=== PATIENT | female | born 1985 | race African-American/Black ===

== ENCOUNTER 2019-10-31 12:04 | Outpatient (CLI) | payer OTHER, SELFPAY ==
--- NOTE | ~2019-10-31 | XR_ITS ---
EXAMINATION: XR chest 2V EXAM DATE: 10/31/2019 12:24 INDICATION: Short of breath and cough for 2 weeks. TECHNIQUE: Frontal and lateral projections of the chest obtained and reviewed. There is no prior james dy for comparison. FINDINGS: The lungs are clear. There are no pleural effusions. The cardiomediastinal silhouette is within normal limits. There is no pneumothorax suspected. The bones and soft tissues are unremarkab le. IMPRESSION: Unremarkable chest x-ray exam. Reviewed, dictated and finalized at location B. [facility] [employer]
== END 2019-10-31 12:05 | disposition home or self-care (01) ==
LOC: ANHIMG 12:11
PROVIDERS: PCP Emergency Medicine; Visit Provider Emergency Medicine
DX: Z72.0 Tobacco use (principal)
CPT/HCPCS: 71046

== ENCOUNTER 2020-03-13 10:29 | Outpatient (CLI) | payer OTHER, SELFPAY ==
--- NOTE | ~2020-03-13 | XR_ITS ---
EXAMINATION: XR cervical spine 4-5V DATE: 03/13/2020 11:01 INDICATION: Back pain. Injury. TECHNIQUE: 5 views of cervical spine were obtained. COMPARISON: None. FINDINGS: There is 11 degrees levoscoliosis of cervicothoracic spine. Vertebral body heights and inte rvertebral disc heights are normal. The uncovertebral joints and facet joints are normal. No central canal stenosis or prevertebral soft tissue swelling. IMPRESSION: 1. Cervicothoracic levoscoliosis. Reviewed, dictated and finalized at location A.
--- NOTE | ~2020-03-13 | XR_ITS ---
LUMBAR SPINE INDICATION: Back pain after injury TECHNIQUE: 3 views lumbar spine COMPARISON: None FINDINGS: No fracture, subluxation or dislocation. No evidence for spondylolysis or spondylolisthesi s. Vertebral bodies and disk spaces are preserved. IMPRESSION: 1: No acute abnormality of the lumbar spine identified. Reviewed, dictated and finalized at location A.
== END 2020-03-13 10:30 | disposition home or self-care (01) ==
PROVIDERS: PCP Emergency Medicine; Visit Provider Emergency Medicine
DX: M54.5 Low back pain (principal)
CPT/HCPCS: 72050; 72100

== ENCOUNTER 2020-07-10 09:26 | Outpatient (CLI) | payer OTHER, SELFPAY ==
--- NOTE | ~2020-07-10 | XR_ITS ---
XR foot RT min 3V DATE: 07/10/2020 10:00 INDICATION: Right fifth metatarsal TECHNIQUE: 4 views COMPARISON: None FINDINGS: No fracture or dislocation, periosteal reaction or bone destruction. Joint spaces are prese rved. No erosive changes. IMPRESSION: Negative Reviewed, dictated and finalized at location A. IMPRESSION: Negative
== END 2020-07-10 09:27 | disposition home or self-care (01) ==
LOC: ANHIMG 09:39
PROVIDERS: PCP Emergency Medicine; Visit Provider Emergency Medicine
DX: M79.671 Pain in right foot (principal)
CPT/HCPCS: 73630

== ENCOUNTER 2020-07-22 08:58 | Outpatient (CLI) | payer OTHER, SELFPAY ==
--- NOTE | 2020-07-22 11:00 | NEURO_ITS ---
Patient Number: [id number] Impression: # Complains of numbness of hands. # Right sensory Carpal Tunnel Syndrome. # No ulnar neuropathy. # Normal needle/EMG exam. # Clinical correlation recommended. Nerve Conduction Studies Anti Sensory Summary Table Stim Site NR Peak (ms) P-T Amp (?V) Site1 Site2 Delta-P (ms) Dist (cm) Lonnie (m/s) Left Median Anti Sensory (2-3nd Digit) Wrist 2.8 72.0 Wrist 2-3nd Digit 2.8 14.0 50 Wrist 2.9 65.3 Wrist 2-3nd Digit 2.8 14.0 50 Right Median Anti Sensory (2-3nd Digit) Wrist 4.0 27.0 Wrist 2-3nd Digit 4.0 14.0 35 Wrist 4.1 29.8 Wrist 2-3nd Digit 4.0 14.0 35 Left Radial Anti Sensory (Base 1st Digit) Wrist 2.0 33.1 Wrist Base 1st Digit 2.0 0.0 Right Radial Anti Sensory (Base 1st Digit) Wrist 2.5 15.5 Wrist Base 1st Digit 2.5 0.0 Left Ulnar Anti Sensory (5th Digit) Wrist 2.5 53.2 Wrist 5th Digit 2.5 14.0 56 Right Ulnar Anti Sensory (5th Digit) Wrist 2.5 52.2 Wrist 5th Digit 2.5 14.0 56 Motor Summary Table Stim Site NR Onset (ms) O-P Amp (mV) Site1 Site2 Delta-0 (ms) Dist (cm) Lonnie (m/s) Left Median Motor (Abd Poll Brev) Wrist 2.8 2.2 Elbow Wrist 4.5 27.0 60 Elbow 7.3 6.0 Right Median Motor (Abd Poll Brev) Wrist 3.0 8.3 Elbow Wrist 4.5 27.0 60 Elbow 7.5 7.6 Left Ulnar Motor (Abd Dig Minimi) Wrist 2.1 7.9 A Elbow Wrist 4.7 28.0 60 A Elbow 6.8 7.2 Right Ulnar Motor (Abd Dig Minimi) Wrist 2.3 6.1 A Elbow Wrist 4.6 29.0 63 A Elbow 6.9 5.1 F Wave Studies NR F-Lat (ms) L-R F-Lat (ms) Left Median (Mrkrs) (Abd Poll Brev) 24.37 1.04 Right Median (Mrkrs) (Abd Poll Brev) 25.40 1.04 Left Ulnar (Mrkrs) (Abd Dig Min) 24.08 0.29 Right Ulnar (Mrkrs) (Abd Dig Min) 24.38 0.29 EMG Side Muscle Nerve Root Ins Act Fibs Amp Dur Recrt Comment Right 1stDorInt Ulnar C8-T1 Nml Nml Nml Nml Nml Right Ext Indicis Radial (Post Int) C7-8 Nml Nml Nml Nml Nml Right Ext Digitorum Radial (Post Int) C7-8 Nml Nml Nml Nml Nml Right BrachioRad Radial C5-6 Nml Nml Nml Nml Nml Right PronatorTeres Median C6-7 Nml Nml Nml Nml Nml Right Abd Poll Brev Median C8-T1 Nml Nml Nml Nml Nml Left 1stDorInt Ulnar C8-T1 Nml Nml Nml Nml Nml Left Ext Indicis Radial (Post Int) C7-8 Nml Nml Nml Nml Nml Left Ext Digitorum Radial (Post Int) C7-8 Nml Nml Nml Nml Nml Left BrachioRad Radial C5-6 Nml Nml Nml Nml Nml Left PronatorTeres Median C6-7 Nml Nml Nml Nml Nml Left Abd Poll Brev Median C8-T1 Nml Nml Nml Nml Nml MTDD
== END 2020-07-22 08:59 | disposition home or self-care (01) ==
PROVIDERS: PCP Emergency Medicine; Visit Provider Psychiatry & Neurology Neurology
DX: R20.2 Paresthesia of skin (principal); G56.01 Carpal tunnel syndrome, right upper limb
CPT/HCPCS: 95886; 95911

== ENCOUNTER → 2020-12-27 01:33 | Outpatient (CLI) | payer OTHER, SELFPAY ==
[2020-12-27 20:22] LABS: SARS-CoV-2 RNA PCR Negative
== END ==
PROVIDERS: PCP Emergency Medicine; Visit Provider Obstetrics & Gynecology
DX: Z01.812 Encounter for preprocedural laboratory examination (principal); Z20.822 Contact with and (suspected) exposure to COVID-19
CPT/HCPCS: C9803; U0003; U0005

== ENCOUNTER 2020-12-31 01:15 | Day surgery (SDC) | payer OTHER, SELFPAY ==
[2020-12-17 14:39] VITALS: BMI 23.4
--- NOTE | 2020-12-30 15:36 | P.PNAN_ITS ---
Anes - Initial Pre Proc Eval Procedure: Operation Date: 12/31/20 07:30 Proposed Procedures p Bilateral Laparoscopic Tubal Ligation, - Rossy Aviles MD s Hysteroscopy With Endometrial Biopsy/Polypectomy - Rossy Aviles MD Date/Time: 12/30/20 15:36 Surgeon: Rossy Aviles MD Pre Op Diagnosis: Desires Sterilization, Polyp of Uterus Patient Data Age: 35 Gender: F Height: 1.63 m Weight: 62 kg Allergies Allergy/AdvReac Type Severity Reaction Status Date / Time No Known Allergies Allergy Verified 07/14/20 14:45 Home Medications Medication Instructions Recorded Confirmed Type No Home Medications 12/17/20 12/17/20 History Patient hx anesthesia problems: none Family hx anesthesia problems: none PMFSH Past Medical History Medical History Arthritis Smoker Social History Social History (Updated 07/14/20 @ 14:47 by Silvia Eddy [facility]) Smoking packs per day: 0.5 Smoking cigarettes per day: 10.0 Years smoked: 20 Smoking pack-years: 10.00 Smoking status: Current every day smoker Tobacco type: cigarettes Second hand tobacco smoke exposure: No Alcohol intake: current Drinks per week: 1 Substance use: never Substance use type: does not use Living arrangements: with family Gender identity (if verbalized by the patient): Female Sexual Orientation (if Verbalized by the Patient): Straight or Heterosexual Spiritual care concerns: No Anes - Eval Final PreProcedure Day of Procedure 12/30/20 15:36 Patient weight: normal Heart: regular rate and rhythm Lungs: clear to auscultation and normal air movement Airway: Mallampati scale class II Neurological: alert and oriented Last oral intake: >/= 8 hours ASA classification: II Emergent: no Anesthetic plan: proceed Anesthesia type and monitoring: general ETT Informed Consent: The patient's anesthetic plan and its attendant risks and benefits were discussed with the patient/family/POA. Questions were solicited and answers provided to the satisfaction of the patient/family/POA.
[2020-12-31] VITALS (8 sets, daily range): BP systolic 100–116; BP diastolic 67–84; PULSE 57–82; RESP 14–18; TEMP 36.3–36.4; O2SAT 99–100
--- NOTE | 2020-12-31 07:15 | WPDHPUPDATE1 ---
History and Physical Update Update Date/Time: 12/31/20 07:15 History and Physical has been reviewed, including an updated exam of the patient. There are NO changes in the patient's condition. Risks, benefits, and alternatives have been discussed and questions answered. Patient agrees to proceed with procedure.
[2020-12-31] MEDS: ACETAMINOPHEN 500 MG TABLET 1000 MG PO (07:33)
[2020-12-31] MEDS: LACTATED RINGERS 1,000 ML 30 ML IV CONT (07:33)
[2020-12-31] MEDS: KETOROLAC 15 MG/ML VIAL (*BKC) IV PUSH (07:33)
[2020-12-31] MEDS: fentaNYL CITRATE INJ (*CRX) 100 MCG/2 ML VIAL 25 MCG IV PUSH ×4 (08:43→08:53)
--- NOTE | 2020-12-31 08:55 | P.OP_ITS ---
Procedure Note - Detailed Date of procedure: 12/31/20 Pre-op diagnosis: Desires Sterilization, Polyp of Uterus Menorrhagia Post-op diagnosis: same Procedure performed: Laparoscopic bilateral tubal ligation, hysteroscopy with polypectomy Description of procedure: Patient was taken the operating room. She has prepped draped in the dorsal lithotomy position after induction of general anesthesia. A 5 mm abdominal incision was made in left upper quadrant of the abdomen with scalpel. A 5 mm trocars inserted the intra-abdominal cavity under direct visualization of the scope. Pneumoperitoneum was achieved. A 5 mm p eriumbilical incision was made using a scalpel on the abdominal scan. A 5 mm trocar was inserted the intra-abdominal cavity under visualization of the scope. The fallopian tube was grasped with the bipolar cautery in the ampullary region. It was completely desiccated in a 1.5 cm area of the fallopian tube. This was performed in identical fashion on the contralateral side. The instruments were withdrawn. The pneumoperitoneum was reduced. The trocars were removed. The skin was closed with subcuticular 4 Monocryl. This incisions were covered with Dermabond. The vaginal portion of the procedure was then performed. A speculum placed in vagina. The cervix was grasped with a tenaculum. The hysteroscope was inserted in the below findings were noted. Cervix was dilated up to about a cm and a medium-size create was used to curettage all the surfaces inside the uterus. This broke the polyp loose from its attachment to the surface. It was removed with a grasper through the operative port of the hysteroscope. The procedure was then terminated. The patient tolerated procedure well. She is taking the recovery room in stable condition. Sponge lap needle counts were correct x2. Anesthesia: GETA Surgeon: Rossy Aviles MD Estimated blood loss (mL): 25 Drains: No Packing: No Pathology: none sent Complications: No immediate complications Condition: stable Disposition: PACU Findings: Normal pelvic anatomy on laparoscopy. Normal vulva vagina and cervix. There was a polyp of about 1 cm within the intrauterine cavity.
[2020-12-31] MEDS: oxyCODONE HCL (*CRX) 5 MG TAB IR PO (09:49)
== END 2020-12-31 10:10 | disposition home or self-care (01) ==
PROVIDERS: Visit Provider Obstetrics & Gynecology
PROC: (CPT 58671; principal; 2020-12-31 07:30)
PROC: 0U5B8ZZ Destruction of Endometrium, Via Natural or Artificial Opening Endoscopic (ICD-10-PCS; CPT 58563; 2020-12-31 07:30)
DX: Z30.2 Encounter for sterilization (principal); N92.0 Excessive and frequent menstruation with regular cycle; N84.0 Polyp of corpus uteri; F17.210 Nicotine dependence, cigarettes, uncomplicated
CPT/HCPCS: 58558; 58670; 88305; A9270; J0330; J1100; J1170; J1885; J2250; J2405; J2704; J3010; J7030; J7120

== ENCOUNTER 2021-05-21 11:49 | Outpatient (CLI) | payer OTHER, SELFPAY ==
[2021-05-21 12:17] LABS: Hematocrit 37.4 % (37.0-47.0); Hemoglobin 12.3 g/dL (12.0-15.0); Mean Corpuscular HGB Conc 32.9 g/dl (32-36); Mean Corpuscular Hemoglobin 31.2 pg (26-34); Mean Corpuscular Volume 94.9 fl (80-100); Mean Platelet Volume 10.5 fl (7.4-10.4); Platelet Count Result 214 k/mm3 (150-375); Red Blood Count 3.94 M/mm3 (4.2-5.4); Red Cell Distribution Width 14.8 % (11.5-14.5); White Blood Count 8.1 K/mm3 (4.5-10.0)
[2021-05-21 12:26] LABS: Alanine Aminotransferase 14 U/L (4-35); Albumin Level 4.4 g/dL (3.5-5.1); Alkaline Phosphatase 57 U/L (38-126); Anion Gap 6 mmol/L (8-16); Aspartate Amino Transferase 23 U/L (14-36); Bilirubin,Total 0.4 mg/dL (0.2-1.3); Blood Urea Nitrogen 9 mg/dL (7-17); Calcium 9.4 mg/dL (8.4-10.2); Carbon Dioxide 23 mmol/L (22-30); Chloride 108 mmol/L (98-107); Cholesterol 178 mg/dL (0-200); Estimated Glomerular Filt Rate > 60; Glucose 90 mg/dL (65-110); HDL Direct 81 mg/dL; Potassium 4.1 mmol/L (3.4-5.0); Sodium 137 mmol/L (137-145); Triglycerides 44 mg/dL (<150)
[2021-05-21 12:32] LABS: Creatinine Urine 54.5 mg/dL
[2021-05-21 12:37] LABS: LDL Cholesterol Direct 73 mg/dL
[2021-05-21 13:05] LABS: Hemoglobin A1C 5.4 % (<5.7)
[2021-05-21 13:21] LABS: Free T4 Free Thyroxine 0.99 ng/mL (0.78-2.19)
[2021-05-21 14:49] LABS: Microalbumin Urine Random < 6.0 mg/L (0-16.7)
== END 2021-05-21 11:50 | disposition home or self-care (01) ==
PROVIDERS: PCP Emergency Medicine; Visit Provider Emergency Medicine
DX: F41.9 Anxiety disorder, unspecified (principal); F32.9 Major depressive disorder, single episode, unspecified
CPT/HCPCS: 36415; 80053; 80061; 82043; 82306; 83036; 84439; 84443; 85027

== ENCOUNTER 2022-01-21 10:00 | Outpatient (CLI) | payer OTHER, SELFPAY ==
[2022-01-21 10:21] LABS: Hematocrit 35.3 % (37.0-47.0); Hemoglobin 11.7 g/dL (12.0-15.0); Mean Corpuscular HGB Conc 33.1 g/dl (32-36); Mean Corpuscular Hemoglobin 32.3 pg (26-34); Mean Corpuscular Volume 97.5 fl (80-100); Mean Platelet Volume 10.1 fl (7.4-10.4); Platelet Count Result 225 k/mm3 (150-375); Red Blood Count 3.62 M/mm3 (4.2-5.4); Red Cell Distribution Width 13.4 % (11.5-14.5); White Blood Count 8.8 K/mm3 (4.5-10.0)
[2022-01-21 10:29] LABS: Hemoglobin A1C 5.1 % (<5.7)
[2022-01-21 10:37] LABS: Alanine Aminotransferase 12 U/L (4-35); Alkaline Phosphatase 47 U/L (38-126); Anion Gap 7 mmol/L (8-16); Aspartate Amino Transferase 24 U/L (14-36); Bilirubin,Total < 0.1 mg/dL (0.2-1.3); Blood Urea Nitrogen 12 mg/dL (7-17); Calcium 8.4 mg/dL (8.4-10.2); Carbon Dioxide 22 mmol/L (22-30); Chloride 108 mmol/L (98-107); Cholesterol 169 mg/dL (0-200); Estimated Glomerular Filt Rate > 60; Glucose 104 mg/dL (65-110); HDL Direct 65 mg/dL; Potassium 4.1 mmol/L (3.4-5.0); Sodium 137 mmol/L (137-145); Triglycerides 43 mg/dL (<150)
[2022-01-21 10:47] LABS: LDL Cholesterol Direct 70 mg/dL
[2022-01-21 10:49] LABS: Add Urine Microscopic? NO; Appearance Urine Clear (Clear); Bilirubin Urine Negative (Negative); Blood Urine Negative (Negative); Color Urine Yellow (Yellow); Glucose Urine UA Negative (Negative); Ketones Urine Negative (Negative); Leukocyte Esterase Ur Negative LEU/UL (NEGATIVE); Nitrate Urine Negative (Negative); Protein Urine Negative (Negative); Specific Grav Ur 1.025 (1.001-1.035); Urobilinogen Urine 0.2 mg/dL (<2.0)
[2022-01-21 10:52] LABS: Free T4 Free Thyroxine 0.99 ng/mL (0.78-2.19); Vitamin D 25 Hydroxy 30.6 ng/mL
[2022-01-21 11:07] LABS: Thyroid Stimulating Hormone 0.602 uIU/mL (0.465-4.680)
[2022-01-21 11:11] LABS: Creatinine Urine 126.4 mg/dL
[2022-01-21 11:58] LABS: MALB Creatinine Ratio < 4.7 mg/g (0-30); Microalbumin Urine Random < 6.0 mg/L (0-16.7)
== END 2022-01-21 10:01 | disposition home or self-care (01) ==
LOC: ANHLAB 10:02
PROVIDERS: PCP Emergency Medicine; Visit Provider Emergency Medicine
DX: F41.9 Anxiety disorder, unspecified (principal); F32.9 Major depressive disorder, single episode, unspecified
CPT/HCPCS: 36415; 80053; 80061; 81003; 82043; 82306; 83036; 84439; 84443; 85027

== ENCOUNTER → 2022-02-19 01:37 | Outpatient (CLI) | payer OTHER, SELFPAY ==
[2022-02-19 16:55] LABS: SARS-CoV-2 RNA PCR Positive
== END ==
PROVIDERS: PCP Emergency Medicine; Visit Provider Emergency Medicine
DX: U07.1 COVID-19 (principal)
CPT/HCPCS: C9803; U0003; U0005

== ENCOUNTER → 2024-10-11 11:41 | Outpatient (CLI) | payer SELFPAY ==
--- NOTE | ~2024-10-11 | XR_ITS ---
CHEST RADIOGRAPH, PA AND LATERAL CLINICAL HISTORY: COUGH X 1 WEEK . COMPARISON: 10/31/2019 TECHNIQUE: PA and lateral views of the chest. FINDINGS The cardiomediastinal silhouette is unremarkable. The lungs are clear. Visualized osseous structures and soft tissues are unremarkable. IMPRESSION: No focal infiltrate or effusion. Reviewed, dictated and finalized at location A. [employer]
== END ==
LOC: EXPCRAD 11:44
PROVIDERS: PCP Emergency Medicine; Visit Provider Emergency Medicine
DX: R05.9 Cough, unspecified (principal)
CPT/HCPCS: 71046